=== PATIENT | female | born 2000 | race Caucasian/White ===

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

== ENCOUNTER 2020-11-13 07:31 | Inpatient (IN) ==
[2020-11-13] MEDS ORDERED: OXYTOCIN 30 UNITS/500 ML BAG IV PRN ×2 (08:29→10:20)
[2020-11-13] MEDS: LACTATED RINGER'S 1,000 ML IV PRN ×2 (09:00→15:20)
--- NOTE | 2020-11-13 09:00 | History & Physical Report ---
Date of Service November 13, 2020 Assessment & Plan (1) Encounter for supervision of normal in multigravida: Plan: 20yo at 40.2 weeks GA. Presents for elective IOL. 1. Fetus: Cat 1 2. Labor: Pitocin, AROM at next check 3. GBS negative 4. Vitals normal Admission and Anticipated Discharge Date Admission Date: November 13, 2020 History of Present Illness Primary Care Provider: Keyla Pierce MD 20yo at 40.2 weeks GA. Presents for elective IOL. uncomplicated t o date. Hx of Preeclampsia in prior . OB Labs: Blood Type A Positive 04/29/20 Antibody Screen NEGATIVE 04/29/20 Hemoglobin 11.3 g/dL (12.0-16.0) L 08/19/20 Hematocrit 32.6 % (37-47) L 08/19/20 Mean Corpuscular Volume 87.3 fL (80-100) 04/29/20 Platelet Count 180 K/uL (130-400) 04/29/20 Rubella IgG Antibody Immune (Immune) 04/29/20 Rapid Plasma Reagin Nonreactive (Nonreactive) 04/29/20 Hepatitis B Surface Antigen Neg (Neg) 04/29/20 HIV (1&2) Ab and P24 Ag, 4th Gener Neg (Neg) 04/29/20 Glucose 1 Hour 50 gm Load 117 mg/dl (70-130) 08/19/20 Maternal Serum Alpha Fetoprotein 39.5 ng/mL 05/27/20 OB Optional Labs: Chlamydia trachomatis RNA NOT DETECTED (NOT DETECTED) 04/08/20 Neisseria gonorrhoeae RNA NOT DETECTED (NOT DETECTED) 04/08/20 Alpha Fetoprotein Triple Screen SEE NOTE 05/27/20 Labs Reviewed: cfDNA neg AFP neg Allergies Allergy/AdvReac Type Severity Reaction Status Date / Time Cephalosporins Allergy Intermediate Hives Verified 11/11/20 10:08 Home Medications Medication Instructions Recorded Confirmed Type metoclopramide HCl 10 mg tablet 10 mg PO Q6H PRN #30 tab 03/25/20 11/11/20 Rx (Reglan) ondansetron HCl 4 mg tablet 4 mg PO Q6H PRN #10 tab 04/01/20 11/11/20 Rx (Zofran) promethazine 25 mg rectal 25 mg NE Q6H PRN #1 ea 04/23/20 11/11/20 Rx suppository promethazine 12.5 mg rectal 12.5 mg NE Q6H PRN #12 ea 04/29/20 11/11/20 Rx suppository polysaccharide iron complex 150 mg 150 mg PO 3XWK #30 tab 08/23/20 11/11/20 Rx iron tablet sertraline 50 mg tablet 50 mg PO DAILY #10 tab 09/20/20 11/11/20 Rx Patient History Medical History Abdominal pain Functional murmur Mild pre-eclampsia Nausea and vomiting in Obsessive compulsive disorder Splenic cyst Varicella vaccination Surgical History History of esophagogastroduodenoscopy (EGD) [place] teeth removed Family History Mother Hypertension Father Hypertension Denies family history of Ovarian cancer Prostate cancer Myocardial infarction Breast cancer Lung cancer Colorectal cancer Social History Smoking Status: Never smoker Second Hand Exposure: No; Hx Alcohol Use: No Hx Substance Use: No Preferred Language: Romanian Communication Ability: Effective Visual Impairment: No Limitations Hearing Ability: Normal Beliefs That Will Affect Care: None marital status: Single marital status details: Steve Cooper (23) [phone] Current Living Situation: Significant Other Current Living Situation Comment: lives with fob, daughter, dog, cat-fob changing litter current occupational status: employed current occupation: [employer] Other Information That Helps Us Care for You: No Feels Safe at Home: Yes Safety Concerns: Feels Safe At This Time caffeine: Yes during the past year weight has: remained stable Dental Care, Regularly: Yes Physical Activity Frequency: Does not Exercise Seatbelt Use: always Assistive Devices: None Physical Exam Constitutional: WD/WN, vitals as above Gastrointestinal (Abdomen): Inspection/Auscultation: abdomen not distended Percussion/Palpation: abdomen soft; abdomen nontender, no guarding and abdomen not rigid Psychiatric: A+Ox3, euthymic affect Genitourinary: normal external appearance Manual OB Exam: + cervical dilation 2 cm, + cervical effacement 50% and + station high OB Exam Monitor Tracing: + external FHT monitor used, + external uterine monitor used, + category I and + normal FHT variability; no early decelerations present, no late decelerations present and no variable decelerations Results & Data ([facility]) Vital Signs (Past 12 Hours) Vital Signs Temp Pulse Resp BP 11/13/20 07:41 36.7 C 90 20 120/71 Code Status & VTE Plan VTE Prophylaxis Plan VTE Prophylaxis will be ordered: No Coding Level of Care Code None Diagnoses Encounter for supervision of normal in multigravida Z34.80
[2020-11-13 09:04] LABS: Hematocrit (blood only) 33.4 % (37-47); Hemoglobin 11.1 g/dL (12.0-16.0); Mean Corpuscular Hemoglobin 27.9 pg (25-34); Mean Corpuscular Hgb Conc 33.2 g/dL (32-36); Mean Corpuscular Volume 83.9 fL (80-100); Mean Platelet Volume 10.8 fL (7.4-10.4); Platelet Count 135 K/uL (130-400); RDW Coefficient of Variation 14.3 % (11.5-14.5); RDW Standard Deviation 43.3 fL (36.4-46.3); Red Blood Count 3.98 M/uL (4.2-5.4)
--- NOTE | 2020-11-13 14:49 | Labor Progress Brief Note ---
Date of Service November 13, 2020 Subjective Reason For Note: Routine Evaluation Assessment & Plan (1) Encounter for supervision of normal in multigravida: Plan: 20yo at 40.2 weeks GA. Presents for elective IOL. 1. Fetus: Cat 1 2. Labor: Pitocin, AROM. 3. GBS negative 4. Vitals normal Admission and Anticipated Discharge Date Admission Date: November 13, 2020 Physical Exam Constitutional: WD/WN, vitals as above Genitourinary: Manual OB Exam: + cervical dilation 2 cm, + cervical effacement 70%, + station -2 and + amniotic fluid clear [facility] ([facility]) Vital Signs (Past 12 Hours) Vital Signs Temp Pulse Resp BP 11/13/20 13:52 36.5 C 20 11/13/20 13:50 81 109/66 11/13/20 12:53 81 107/56 L 11/13/20 12:05 88 107/59 L 11/13/20 10:58 96 H 117/72 11/13/20 09:01 36.7 C 20 11/13/20 07:41 36.7 C 90 20 120/71 Coding Level of Care Code None Diagnoses Encounter for supervision of normal in multigravida Z34.80
[2020-11-13] MEDS ORDERED: fentaNYL citrate 100 MCG/2 ML VIAL ONE (14:56)
[2020-11-13] MEDS ORDERED: SODIUM CHLORIDE 0.9% INJ 10 ML VIAL ONE (14:56)
[2020-11-13] MEDS ORDERED: BUPIVACAINE 0.25% 30 ML VIAL ONE (14:56)
[2020-11-13] MEDS ORDERED: ePHEDrine sulfate 50 MG/ML AMP ONE (14:56)
[2020-11-13] MEDS ORDERED: fentaNYL 2MCG/ML ROPIVACAINE 1.25MG/ML 100 ML BAG EPI ONE (14:57)
--- NOTE | 2020-11-13 15:07 | Anesthesiology Consultation ---
Date of Service November 13, 2020 Assessment & Plan Chart Review Chart Review: Acceptable Risk for Surgery and Patient NOT seen in Pre Admission Testing Consults Requested none ASA ASA2 Proposed Anesthesia Anesthesia Type: Labor Epidural and CSE History Height/Weight Height: 5 ft 1 in Weight: 71.668 kg Allergies Allergy/AdvReac Type Severity Reaction Status Date / Time Cephalosporins Allergy Intermediate Hives Verified 11/11/20 10:08 Medications Home Medications Medication Instructions Recorded Confirmed Last Taken polysaccharide iron complex 150 mg 150 mg PO 3XWK #30 tab 08/23/20 11/13/20 11/12/20 21:00 iron tablet sertraline 50 mg tablet 50 mg PO DAILY #10 tab 09/20/20 11/13/20 11/12/20 21:00 aspirin 81 mg tablet 81 mg PO DAILY 11/13/20 11/13/20 11/12/20 21:00 Active Medications Generic Name Dose Route Start Last Admin Trade Name Freq PRN Reason Stop Dose Admin Lactated Ringer's 1,000 mls @ 125 mls/hr 11/13/20 08:29 11/13/20 09:00 Lr IV 11/15/20 08:28 125 mls/hr .Q8H PRN Administration L&D Protocol Protocol Oxytocin 30 units in 500 mls @ 12 mls/hr 11/13/20 10:20 11/13/20 14:09 Pitocin IV 11/15/20 10:19 0.72 units/hr .Q24H PRN 12 mls/hr Labor Induction/Augmentation Titration Protocol 0.72 UNITS/HR Past Medical History Medical History Abdominal pain Functional murmur Mild pre-eclampsia Nausea and vomiting in Obsessive compulsive disorder Splenic cyst Varicella vaccination Exercise / Class Metabolic Activity II 4-5 Yardwork/Stairs/Walk up hill Past Family History Family History Mother Hypertension Father Hypertension Denies family history of Ovarian cancer Prostate cancer Myocardial infarction Breast cancer Lung cancer Colorectal cancer Past Surgical History Surgical History History of esophagogastroduodenoscopy (EGD) [place] teeth removed Past Anesthesia History No Hx of Anesthesia Complications and No Family Hx of Anesthesia Complications History of PONV No Hx of PONV and No Hx of Motion Sickness Social History Smoking Status: Never smoker Hx Alcohol Use: No Hx Substance Use: No substance use type: does not use Physical Exam Vital Signs Last Vital Signs Temp 36.8 C 11/13/20 14:56 Pulse 81 11/13/20 13:50 Resp 18 11/13/20 14:56 BP 109/66 11/13/20 13:50 Testing Laboratory Results 11/13/20 08:40
[2020-11-13] MEDS ORDERED: fentaNYL 2MCG/ML ROPIVACAINE 1.25MG/ML 100 ML BAG EPI PRN (15:54)
[2020-11-13] MEDS ORDERED: ePHEDrine sulfate 50 MG/ML AMP IV PRN (15:54)
[2020-11-13] MEDS ORDERED: NALBUPHINE HCL INJ 10 MG/ML AMP IV PRN (15:54)
[2020-11-13] MEDS ORDERED: diphenhydrAMINE 50 MG/ML VIAL IV PRN (15:54)
[2020-11-13] MEDS ORDERED: NALOXONE HCL 1 MG in SODIUM CHLORIDE 0.9% 1000ML 1,000 ML IV PRN (15:54)
[2020-11-13] MEDS ORDERED: ONDANSETRON INJ 2 MG/ML 2 ML VIAL IV PRN (15:54)
[2020-11-13] MEDS ORDERED: PROMETHAZINE HCL 25 MG in SODIUM CHLORIDE 0.9% 50 ML IV PRN (15:54)
[2020-11-13] MEDS ORDERED: NALOXONE HCL 0.4 MG/1 ML VIAL/CARP IV PRN (15:54)
[2020-11-13] MEDS ORDERED: HYDROCORTISONE ACETATE 25 MG SUPP PR PRN (20:37)
[2020-11-13] MEDS ORDERED: DIPHTHERIA/TETANUS/PERTUSSIS 0.5 ML SYR/VIAL IM ONE (20:37)
[2020-11-13] MEDS ORDERED: ACETAMINOPHEN 325 MG TAB PO PRN (20:37)
[2020-11-13] MEDS ORDERED: BENZOCAINE 20% AER SPR 82.5 GM CAN EXT PRN (20:37)
[2020-11-13] MEDS ORDERED: bisacodyL 10 MG SUPP PR PRN (20:37)
[2020-11-13] MEDS ORDERED: SUPERCREAM 0.870% 15 GM JAR EXT PRN (20:37)
--- NOTE | 2020-11-13 21:10 | Anesthesia Procedure Note ---
Date of Service November 13, 2020 Anesthesia Post Epidural Note Vital Signs Vital Signs: Temp Pulse Resp BP Pulse Ox 36.8 C 90 18 111/66 100 11/13/20 18:30 11/13/20 20:58 11/13/20 20:40 11/13/20 20:58 11/13/20 20:25 Pain Intensity Abdomen: Pain Intensity: 5 Notes Mental Status: alert / awake / arousable Nausea / Vomiting: adequately controlled Pain: adequately controlled Airway Patency, RR, SpO2: stable & adequate BP & HR: stable & adequate Hydration State: stable & adequate Neuraxial Anesthesia: was administered and sensory block is resolving Anesthetic Complications: no major complications apparent Epidural: Removed without complications and With tip intact
[2020-11-13] MEDS: IBUPROFEN 600 MG TAB PO PRN (21:34)
[2020-11-13] MEDS: OXYTOCIN 30 UNITS/500 ML BAG IV PRN ×2 (21:39→23:19)
[2020-11-13] MEDS ORDERED: METHYLERGONOVINE MALEATE 0.2 MG/ML AMP ONE (22:17)
[2020-11-13] MEDS ORDERED: METHYLERGONOVINE MALEATE 0.2 MG/ML AMP IM ONE (22:22)
[2020-11-13] MEDS ORDERED: miSOPROStoL 200 MCG TAB PR ONE (22:22)
--- NOTE | 2020-11-13 22:28 | Obstetrical Progress Note ---
Date of Service November 13, 2020 Assessment & Plan Admission and Anticipated Discharge Date Admission Date: November 13, 2020 Subjective Presented to evaluate complaint of back and side pain. Expressed ~ 750 ml or cl ots from uterus. Patient given 800mcg Cytotec and IM Methergine x1. Uterus firm 2 cm below umbilicus and bleeding minimal. RN to straight cath for concern of lower uterine segment atony form bladder distention. Total EBL including delivery is around 900mL. H/H in am Results & Data ([facility]) Vital Signs (Past 12 Hours) Vital Signs Temp Pulse Resp BP Pulse Ox 11/13/20 22:13 85 113/65 11/13/20 22:01 18 11/13/20 21:58 97 H 112/67 11/13/20 21:43 99 H 112/64 11/13/20 21:28 99 H 110/63 11/13/20 21:25 18 11/13/20 21:13 101 H 121/66 11/13/20 21:10 18 11/13/20 20:58 90 111/66 11/13/20 20:55 18 11/13/20 20:43 100 H 100/58 L 11/13/20 20:40 18 11/13/20 20:28 116 H 120/61 11/13/20 20:25 90 100 11/13/20 20:20 133 H 100 11/13/20 20:18 126 H 91 11/13/20 20:15 120 H 100 11/13/20 20:14 139 H 141/66 H 11/13/20 20:10 127 H 99 11/13/20 20:05 118 H 100 11/13/20 20:00 90 18 99 11/13/20 19:58 95 H 108/64 11/13/20 19:55 91 H 100 11/13/20 19:50 99 H 100 11/13/20 19:45 92 H 100 11/13/20 19:44 92 H 118/65 11/13/20 19:40 95 H 99 11/13/20 19:35 89 100 11/13/20 19:30 95 H 18 99 11/13/20 19:29 102 H 126/71 11/13/20 19:25 97 H 99 11/13/20 19:20 100 H 100 11/13/20 19:15 98 H 100 11/13/20 19:13 90 122/73 11/13/20 19:10 104 H 99 11/13/20 19:05 95 H 100 11/13/20 19:00 94 H 18 100 11/13/20 18:58 123 H 127/69 11/13/20 18:55 115 H 100 11/13/20 18:50 90 100 11/13/20 18:45 88 100 11/13/20 18:43 90 106/59 L 11/13/20 18:40 91 H 100 11/13/20 18:35 92 H 100 11/13/20 18:30 36.8 C 94 H 18 100 11/13/20 18:28 83 110/60 11/13/20 18:25 84 99 11/13/20 18:20 88 100 11/13/20 18:15 94 H 98 11/13/20 18:13 85 115/64 11/13/20 18:10 88 99 11/13/20 18:05 92 H 99 11/13/20 18:00 82 100 11/13/20 17:59 79 116/60 11/13/20 17:55 85 100 11/13/20 17:50 87 98 11/13/20 17:45 82 99 11/13/20 17:43 84 112/60 11/13/20 17:40 86 99 11/13/20 17:35 85 99 11/13/20 17:30 88 100 11/13/20 17:29 94 H 114/60 11/13/20 17:25 85 100 11/13/20 17:20 95 H 99 11/13/20 17:15 102 H 100 11/13/20 17:14 100 H 99/54 L 11/13/20 17:10 108 H 100 11/13/20 17:05 96 H 99 11/13/20 17:00 93 H 99 11/13/20 16:59 87 99/54 L 11/13/20 16:55 89 99 11/13/20 16:50 91 H 99 11/13/20 16:45 91 H 100 11/13/20 16:43 86 102/56 L 11/13/20 16:40 84 99 11/13/20 16:35 85 98 11/13/20 16:30 36.9 C 94 H 18 99 11/13/20 16:28 93 H 103/51 L 11/13/20 16:25 84 98 11/13/20 16:20 83 98 11/13/20 16:15 95 H 99 11/13/20 16:13 93 H 102/56 L 11/13/20 16:10 92 H 99 11/13/20 16:05 93 H 97 11/13/20 16:00 95 H 18 97 11/13/20 15:58 94 H 106/63 11/13/20 15:56 86 104/62 11/13/20 15:55 87 97 11/13/20 15:54 85 110/64 11/13/20 15:52 87 113/60 11/13/20 15:50 97 H 18 100 11/13/20 15:49 92 H 108/65 11/13/20 15:48 74 18 109/68 11/13/20 15:46 55 L 18 108/62 11/13/20 15:45 58 L 100 11/13/20 15:44 18 11/13/20 15:43 58 L 81/39 L 11/13/20 15:42 18 11/13/20 15:40 66 18 99 11/13/20 15:38 85 18 119/62 11/13/20 15:36 87 120/59 L 11/13/20 15:35 84 100 11/13/20 15:34 89 120/58 L 11/13/20 15:30 97 H 99 11/13/20 15:25 116 H 100 11/13/20 15:20 105 H 100 11/13/20 15:15 85 99 11/13/20 15:10 100 H 100 11/13/20 14:56 36.8 C 18 11/13/20 13:52 36.5 C 20 11/13/20 13:50 81 109/66 11/13/20 12:53 81 107/56 L 11/13/20 12:05 88 107/59 L 11/13/20 10:58 96 H 117/72 PG Care Time/CCT Total # of Minutes Spent Total Time Spent with Patient: Total time spent is greater than 50% in coordination of care (as documented) at patient's floor/unit and/or counseling patient: Coding Level of Care Code None
--- NOTE | 2020-11-13 23:47 | Delivery Summary ---
DATE OF SERVICE: 11/13/2020 PROCEDURE: Normal spontaneous vaginal delivery. SURGEON: Darío Garcia MD. PREOPERATIVE DIAGNOSES: 1. Single intrauterine at 40 weeks 2 days gestational age. 2. Elective induction of labor. POSTOPERATIVE DIAGNOSES: 1. Single intrauterine at 40 weeks 2 days gestational age. 2. Elective induction of labor. 3. Status post delivery. ESTIMATED BLOOD LOSS: 100 mL. DRAINS: None. FLUIDS: Continuous lactated Ringer. URINE OUTPUT: Not measured. COMPLICATIONS: None. FINDINGS: Viable male infant with weight and Apgars pending. INDICATIONS: Angel is a 20-year-old G2, P1, admitted at 40 weeks 2 days gestational age for electiv e induction of labor. At initial evaluation, the patient was found to be 2 cm dilated, 50% effaced, n egative 3 station. She was started on oxytocin per regular protocol. She later underwent artificial rupture of membranes for clear fluid and received an epidural for anesthesia. She continued to prog ress in labor to complete-complete, +1 station, at which time she began to push and pushed for approx imately 10-15 minutes to achieve delivery. DETAILS OF PROCEDURE: The patient progressed to 10 cm dilated, 100% effaced, positive 1 station, pus hed over intact perineum with epidural anesthesia and delivered a viable male , weight and Apga rs as noted above. Head of the delivered in ALIDA position, restituted to right transverse. N o nuchal cord was noted. Body and shoulders quickly followed. was noted to be vigorous soon after delivery and a 1 minute delayed cord clamping was initiated. Cord was then double clamped and cut. remained on the maternal abdomen and continued to be vigorous. Cord blood was obtained . Attention was then turned to delivery of placenta, which was delivered intact, 3-vessel cord, gent le cord traction. On inspection of the perineum, vagina, cervix, there was noted to be no laceration s. Sponge and instrument counts were correct at the completion of the case. Both mother and were stable in the immediate post-delivery period. Job ID: [id number]
[2020-11-14] MEDS ORDERED: SERTRALINE HCL 50 MG TABLET PO ONE
[2020-11-14] MEDS: IBUPROFEN 600 MG TAB PO PRN ×4 (03:06→19:36)
[2020-11-14 06:05] LABS: Hematocrit (blood only) 28.6 % (37-47); Hemoglobin 9.5 g/dL (12.0-16.0)
[2020-11-14] MEDS: PRENATAL VITAMIN 1 TAB PO SCH (09:07)
[2020-11-14] MEDS: FERROUS SULFATE 325 MG TAB PO SCH (09:07)
[2020-11-14] MEDS: DOCUSATE SODIUM 100 MG CAP PO SCH ×2 (09:08→19:35)
[2020-11-14] MEDS ORDERED: bisacodyL 5 MG TABEC PO SCH (20:00)
--- NOTE | 2020-11-15 06:28 | Obstetrical Progress Note ---
Date of Service <Mini Anderson - Last Filed: 11/15/20 06:28> November 15, 2020 Assessment & Plan <Mini JustinDO - Last Filed: 11/15/20 06:28> (1) Encounter for care and examination after delivery: 20 yo post op day2 from , doing well. -Continue routine post care. -vital signs reviewed and WNL (Tmax 36.6) -Blood Type A+, GBS-, Rubella Immune -Encourage ambulation, monitor and control pain with Motrin, tylenol PRN, resume regular diet, monitor lochia -encourage breast feeding -hemoglobin 9.5 (8/5) Day #:: 2 <Gabrielle Ludwig MD - Last Filed: 11/15/20 07:10> (1) Encounter for care and examination after delivery: Subjective <Mini Anderson - Last Filed: 11/15/20 06:28> Ambulation: ambulating normally Voiding: no voiding problems Passing Gas:: Yes Diet Tolerance:: regular diet Lochia:: Small Feeding Type:: breast feeding Current Pain Level(1-10): 1 (pain well controlled on medication) Review of Systems Denies fever, chills, sweats Denies shortness of breath, difficulty breathing, chest pain, palpitations, chest pressure. Denies breast pain. Denies dysuria. Denies headache or changes in vision. Physical Exam <Mini Anderson - Last Filed: 11/15/20 06:28> General: Alert, oriented. No acute distress. Cardiac: Regular rate and rhythm, no murmurs/rubs/gallops. Respiratory: Clear to auscultation bilaterally a/p, no wheezes/rales/rhonchi. No increased work of breathing. Symmetrical chest rise. No respiratory distress. Abdomen: Soft, nontender, nondistended. Bowel sounds present. Uterus: Uterine fundus firm, palpable 1 cm below umbilicus. Lower Extremities: No lower extremity edema or swelling. No deep calf pain. Guero's negative bilaterally.. Results & Data ([facility]) <Mini JustinDO - Last Filed: 11/15/20 06:28> Vital Signs (Past 12 Hours) Vital Signs Temp Pulse Resp BP Pulse Ox 11/14/20 23:31 36.5 C 72 16 110/72 100 11/14/20 19:30 36.5 C 84 18 111/73 Medications Administered Current Inpatient Medications Acetaminophen (Acetaminophen 325 Mg Tab) 650 mg PO Q6H PRN PRN Reason: Pain/[place]/Fever Stop: 12/13/20 20:36 Last Admin: 11/13/20 22:37 Dose: 650 mg Documented by: Benzocaine (Benzocaine 20% Aer Spr 82.5 Gm Can) 1 appln EXT PRN PRN PRN Reason: Perineal Discomfort Stop: 12/13/20 20:36 Last Admin: 11/13/20 21:34 Dose: 1 appln Documented by: Bisacodyl (Bisacodyl 10 Mg Supp) 10 mg CA DAILY PRN PRN Reason: No BM on 2nd post- day Stop: 12/13/20 20:36 Cocaine HCl (Supercream 0.870% 15 Gm Jar) 1 gm EXT BID PRN PRN Reason: Hemorrhoidal Inflammation Stop: 11/27/20 20:36 Last Admin: 11/13/20 21:34 Dose: 1 gm Documented by: Docusate Sodium (Docusate Sodium 100 Mg Cap) 100 mg PO DAILY@ [facility] Stop: 12/13/20 20:59 Last Admin: 11/14/20 19:35 Dose: 100 mg Documented by: Ferrous Sulfate (Ferrous Sulfate 325 Mg Tab) 325 mg PO DAILY@08 [facility] Stop: 12/14/20 07:59 Last Admin: 11/14/20 09:07 Dose: 325 mg Documented by: Hydrocortisone (Hydrocortisone Acetate 25 Mg Supp) 25 mg CA BID PRN PRN Reason: Hemorrhoidal Inflammation Stop: 12/13/20 20:36 Lactated Ringer's (Lr) 1,000 mls @ 125 mls/hr IV .Q8H PRN; Protocol PRN Reason: L&D Protocol Stop: 11/15/20 08:28 Last Infusion: 11/13/20 20:56 Dose: Infused Documented by: Oxytocin (Pitocin) 30 units in 500 mls @ 333.333 mls/hr IV .Q1H30M PRN; Protocol PRN Reason: Bleeding Control Last Admin: 11/13/20 23:19 Dose: 19.98 units/hr, 333 mls/hr Documented by: Ibuprofen (Ibuprofen 600 Mg Tab) 600 mg PO Q4H PRN PRN Reason: Pain/[place]/Cramping/Fever Stop: 12/13/20 20:36 Last Admin: 11/14/20 19:36 Dose: 600 mg Documented by: Rosmery Multivit/[place]/Iron/Folic Ac ( Vitamin 1 Tab) 1 tab PO DAILY@08 [facility] Stop: 12/14/20 07:59 Last Admin: 11/14/20 09:07 Dose: 1 tab Documented by: <Gabrielle Ludwig MD - Last Filed: 11/15/20 07:10> Co-Signing Physician Notes Resident Physician Supervision Note: I interviewed and examined the patient. Discussed with Dr. Anderson and agree with findings and plan as documented in the note. Any exceptions or clarifications are listed here: PP2 from , doing well. VSS, exam benign and wnl. Meeting all pp milestones, stable for d/c home today Documented By: Gabrielle Ludwig MD Resident Activity Tracking <Mini Anderson DO - Last Filed: 11/15/20 06:28> Resident Involvement: Resident Care Provided Care Provided: OB Delivery
[2020-11-15] MEDS: PRENATAL VITAMIN 1 TAB PO SCH (08:09)
[2020-11-15] MEDS: DOCUSATE SODIUM 100 MG CAP PO SCH (08:10)
[2020-11-15] MEDS: FERROUS SULFATE 325 MG TAB PO SCH (08:10)
== END 2020-11-15 09:20 | disposition home or self-care (01) | DRG 807 ==
LOC: 4S1 07:31 → 4S2 11-14 00:30